=== PATIENT | female | born 1950 | race Caucasian/White ===

== ENCOUNTER → 2017-10-30 | Outpatient (CLI) | payer OTHER | END | disposition home or self-care (01) | LOC: PCVCCLINIC 11:17 | DX: I10 Essential (primary) hypertension (principal); Z88.0 Allergy status to penicillin; Z91.040 Latex allergy status | CPT/HCPCS: 36415 ==

== ENCOUNTER → 2017-12-31 | Outpatient (CLI) | payer OTHER | END | disposition home or self-care (01) | LOC: PCVCIMAG 10:13 | DX: R07.9 Chest pain, unspecified (principal); R06.09 Other forms of dyspnea; I10 Essential (primary) hypertension; H53.9 Unspecified visual disturbance | CPT/HCPCS: 78452; 93017; 93306; A9500 ==